=== PATIENT | male | born 2000 | race Two or more races ===

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

== ENCOUNTER 2023-06-25 00:18 | Observation (INO) | payer OTHER ==
[2023-06-25] MEDS ORDERED: ONDANSETRON 4 MG/2 ML VIAL ONE (00:44)
[2023-06-25] MEDS ORDERED: ACETAMINOPHEN INJECTION 100 ML IVPB ONE (00:44)
[2023-06-25] MEDS ORDERED: MAG HYDROX/AL HYDROX/SIMETH 30 ML UNIT-DOSE CUP ONE (00:44)
[2023-06-25] MEDS ORDERED: FAMOTIDINE 10 MG/ML VIAL IVPB ONE (00:44)
[2023-06-25] MEDS: SODIUM CHLORIDE 0.9% 500 ML INFUS.BAG IV ONE (01:06)
[2023-06-25] MEDS: ONDANSETRON 4 MG/2 ML VIAL IVPUSH ONE (01:06)
[2023-06-25] MEDS: ACETAMINOPHEN 1000 MG/100 ML BAG IVPB ONE (01:06)
[2023-06-25] MEDS: FAMOTIDINE 20 MG/50 ML IVPB 20 MG/50 ML MG IVPB ONE (01:06)
[2023-06-25] MEDS: MAG HYDROX/AL HYDROX/SIMETH 30 ML UNIT-DOSE CUP PO ONE (01:06)
[2023-06-25 01:23] LABS: BASO % 0.2 % (0-2.0); EOS % 0.5 % (0-4.5); HEMATOCRIT 42.3 % (35.4-49); HEMOGLOBIN 14.5 GM/dL (11.7-16.9); LYMPH % 6.5 % (8-40); MCH 29.6 pg (25.7-33.7); MCHC 34.2 g/dl (32.0-35.9); MEAN CELL VOLUME 86.6 fl (80-96); MEAN PLT VOLUME 8.8 fl (7.5-11.1); MONO % 5.5 % (3.8-10.2); NEUT % 87.3 % (42.8-82.8); PLATELET COUNT 195 10^3/uL (134-434); RBC 4.89 M/mm3 (4.00-5.60); RDW 13.5 % (11.9-15.9); WHITE BLOOD COUNT 10.6 K/mm3 (4.0-10.0)
[2023-06-25 01:47] LABS: ALBUMIN 4.2 g/dl (3.4-5.0); BLOOD UREA NITROGEN 11.9 mg/dL (7-18); CALCIUM 9.1 mg/dL (8.5-10.1)
[2023-06-25 01:50] LABS: CREATININE 0.8 mg/dL (0.55-1.3)
[2023-06-25 01:52] LABS: BILIRUBIN,TOTAL 0.8 mg/dL (0.2-1)
[2023-06-25] MEDS: SODIUM CHLORIDE 1,000 ML IV SCH (06:04)
[2023-06-25] MEDS ORDERED: ONDANSETRON 4 MG/2 ML VIAL IVPUSH PRN (07:00)
[2023-06-25] MEDS ORDERED: ACETAMINOPHEN 1000 MG/100 ML BAG IVPB PRN (07:00)
[2023-06-25] MEDS: LACTATED RINGERS SOLUTION 1,000 ML/1,000 ML INFUS.BAG IV SCH (07:45)
[2023-06-25] MEDS ORDERED: PANTOPRAZOLE SODIUM 40 MG/100 ML BAG IVPB ONE (10:41)
[2023-06-25] MEDS: PANTOPRAZOLE SODIUM 40 MG VIAL IVPUSH SCH (10:41)
[2023-06-25 15:09] LABS: METHADONE, UR NEGATIVE (NEGATIVE)
[2023-06-25 15:13] LABS: COCAINE, UR NEGATIVE (NEGATIVE); OPIATES, URI NEGATIVE (NEGATIVE); URINE AMPHETAMINES NEGATIVE (NEGATIVE); URINE BARBITURATES NEGATIVE (NEGATIVE)
[2023-06-25 15:15] LABS: PHENCYCLIDINE,URINE NEGATIVE (NEGATIVE); URINE BENZODIAZEPINES NEGATIVE (NEGATIVE)
[2023-06-25] MEDS ORDERED: FLU VACCINE (FLULAVAL) PF 60 MCG/0.5 ML SYRINGE 2023-2024 IM ONE (19:03)
[2023-06-25 19:11] VITALS: BMI 31.1
[2023-06-26 07:32] VITALS: RESP 18
[2023-06-26 08:12] LABS: BASO % 0.2 % (0-2.0); EOS % 3.1 % (0-4.5); HEMATOCRIT 36.6 % (35.4-49); MCH 30.3 pg (25.7-33.7); MCHC 35.4 g/dl (32.0-35.9); MEAN CELL VOLUME 85.4 fl (80-96); MEAN PLT VOLUME 8.4 fl (7.5-11.1); MONO % 11.2 % (3.8-10.2); NEUT % 54.5 % (42.8-82.8); PLATELET COUNT 171 10^3/uL (134-434); RBC 4.28 M/mm3 (4.00-5.60); WHITE BLOOD COUNT 4.6 K/mm3 (4.0-10.0)
[2023-06-26 08:47] LABS: POTASSIUM 3.7 mmol/L (3.5-5.1)
[2023-06-26 08:56] LABS: CALCIUM 8.8 mg/dL (8.5-10.1)
[2023-06-26 08:57] LABS: BLOOD UREA NITROGEN 10.3 mg/dL (7-18)
[2023-06-26 09:00] LABS: CREATININE 0.7 mg/dL (0.55-1.3)
[2023-06-26] MEDS: FLU VACCINE (FLULAVAL) PF 60 MCG/0.5 ML SYRINGE 2023-2024 IM ONE (10:25)
[2023-06-26 14:57] VITALS: BP 114/75; PULSE 75; TEMP 97.7
== END 2023-06-26 19:43 | disposition home or self-care (01) ==
LOC: JER 00:18 → JERBED 04:22 → J7W 18:47
PROVIDERS: ADMIT Internal Medicine; ATTEND Family Medicine
PROC: 3E033NZ Introduction of Analgesics, Hypnotics, Sedatives into Peripheral Vein, Percutaneous Approach (ICD-10-PCS; principal; 2023-06-25)
PROC: 3E033GC Introduction of Other Therapeutic Substance into Peripheral Vein, Percutaneous Approach (ICD-10-PCS; 2023-06-25)
PROC: 3E023GC Introduction of Other Therapeutic Substance into Muscle, Percutaneous Approach (ICD-10-PCS; 2023-06-25)
PROC: 3E0337Z Introduction of Electrolytic and Water Balance Substance into Peripheral Vein, Percutaneous Approach (ICD-10-PCS; 2023-06-25)
PROC: 3E033GC Introduction of Other Therapeutic Substance into Peripheral Vein, Percutaneous Approach (ICD-10-PCS; 2023-06-25)
DX: K56.7 Ileus, unspecified (principal); K21.9 Gastro-esophageal reflux disease without esophagitis; J45.909 Unspecified asthma, uncomplicated; Z87.891 Personal history of nicotine dependence; R10.9 Unspecified abdominal pain
CPT/HCPCS: 0241U-QW; 36415; 71046-TC-FY; 74018-TC-FY; 74019-TC-FY; 74177-TC; 80048; 80053; 80307; 83690; 85025; 87040; 87086; 90471; 90686; 96361; 96365; 96372; 96375; 99285-25; G0378; J0131

== ENCOUNTER 2023-09-30 10:44 | Day surgery (SDC) | payer OTHER ==
[2023-09-24 15:54] VITALS: BMI 29.5
[2023-09-30 12:21] VITALS: PULSE 82; TEMP 98
[2023-09-30 12:45] VITALS: RESP 16
[2023-09-30 12:47] VITALS: BP 116/68
== END 2023-09-30 13:18 | disposition home or self-care (01) ==
LOC: FASU-ENDO 10:44
PROVIDERS: ATTEND Internal Medicine Gastroenterology
PROC: 0DB98ZX Excision of Duodenum, Via Natural or Artificial Opening Endoscopic, Diagnostic (ICD-10-PCS; 2023-09-30)
PROC: 0DB68ZX Excision of Stomach, Via Natural or Artificial Opening Endoscopic, Diagnostic (ICD-10-PCS; 2023-09-30)
PROC: 0DB48ZX Excision of Esophagogastric Junction, Via Natural or Artificial Opening Endoscopic, Diagnostic (ICD-10-PCS; 2023-09-30)
PROC: 3E0G8GC Introduction of Other Therapeutic Substance into Upper GI, Via Natural or Artificial Opening Endoscopic (ICD-10-PCS; principal; 2023-09-30 12:09)
DX: K29.50 Unspecified chronic gastritis without bleeding (principal); K20.90 Esophagitis, unspecified without bleeding
CPT/HCPCS: 88305-TC; 88342-TC